=== PATIENT | male | born 1945 | race Caucasian/White ===

== ENCOUNTER 2016-11-23 14:14 | Day surgery (SDC) | payer SELFPAY, OTHER ==
[2016-11-23] MEDS ORDERED: hydrALAzine 20 MG INJ (15:30)
[2016-11-23] MEDS ORDERED: PROPOFOL 60 ML (15:30)
== END 2016-11-23 17:51 | disposition home or self-care (01) ==
LOC: GIL 14:14
DX: Z12.11 Encounter for screening for malignant neoplasm of colon (principal); D12.6 Benign neoplasm of colon, unspecified; K63.5 Polyp of colon; K64.8 Other hemorrhoids; K57.30 Diverticulosis of large intestine without perforation or abscess without bleeding; I12.9 Hypertensive chronic kidney disease with stage 1 through stage 4 chronic kidney disease, or unspecified chronic kidney disease; E11.22 Type 2 diabetes mellitus with diabetic chronic kidney disease; N18.9 Chronic kidney disease, unspecified; E78.5 Hyperlipidemia, unspecified; E66.9 Obesity, unspecified; Z68.36 Body mass index [BMI] 36.0-36.9, adult
CPT/HCPCS: 45380; 82962; 88305

== ENCOUNTER 2018-07-08 10:59 | Day surgery (SDC) | payer OTHER ==
[2018-07-08] MEDS ORDERED: HEPARIN 1000 UNITS/NS (A-LINE) 1,000 ML (12:51)
[2018-07-08] MEDS ORDERED: IODIXANOL LOCM 100 ML BTL (12:51)
[2018-07-08] MEDS ORDERED: HEPARIN 1000 UNITS/ML 10 ML INJ (12:51)
[2018-07-08] MEDS ORDERED: FENTAnyl 50 MCG/ML VIAL (12:51)
[2018-07-08] MEDS ORDERED: LIDOCAINE 1% (MDV) 20 ML INJ (12:51)
[2018-07-08] MEDS ORDERED: MIDAZOLAM 1 MG/ML 2 ML INJ (12:51)
[2018-07-08] MEDS ORDERED: hydrALAzine 20 MG INJ (13:32)
[2018-07-08] MEDS ORDERED: ACETAMINOPHEN 325 MG TAB PO (14:00)
[2018-07-08] MEDS ORDERED: ONDANSETRON 4 MG INJ IV (14:00)
[2018-07-08] MEDS ORDERED: HOLD all METFORMIN and METFORMIN CONTAINING medications for 48 hours post procedure. Chec XX (14:00)
== END 2018-07-08 14:30 | disposition home or self-care (01) ==
LOC: SDS 10:59
DX: T82.898A Other specified complication of vascular prosthetic devices, implants and grafts, initial encounter (principal); Y84.1 Kidney dialysis as the cause of abnormal reaction of the patient, or of later complication, without mention of misadventure at the time of the procedure; I12.0 Hypertensive chronic kidney disease with stage 5 chronic kidney disease or end stage renal disease; N18.6 End stage renal disease; Z45.2 Encounter for adjustment and management of vascular access device; E11.9 Type 2 diabetes mellitus without complications; I25.10 Atherosclerotic heart disease of native coronary artery without angina pectoris; Z86.73 Personal history of transient ischemic attack (TIA), and cerebral infarction without residual deficits
CPT/HCPCS: 36589; 36902; 82962